=== PATIENT | male | born 1965 | race African-American/Black ===

== ENCOUNTER 2022-09-23 12:19 | Outpatient (REF) | payer OTHER, SELFPAY ==
--- NOTE | ~2022-09-23 | XR_ITS ---
EXAMINATION: XR ELBOW, LEFT CLINICAL INFORMATION: Elbow effusion COMPARISON: None available. TECHNIQUE: Three views of the left elbow. FINDINGS: No acute fracture or dislocation. No joint effusion. Mild degenerative changes in the elbow with degenerative spurring. Marked soft tissue swelling and edema dorsal to the elbow. XR/XR elbow LT 2V IMPRESSION: 1. Marked soft tissue swelling and edema dorsal to the elbow, which could reflect olecranon bursitis in the appropriate clinical setting. 2. Mild degenerative changes of the elbow.
[2022-09-23 13:19] LABS: MANUAL DIFF FLAG NO
[2022-09-23 13:21] LABS: Basophils Percent Auto 0.3 % (0-2); Eosinophils Percent Auto 0.5 % (0-4); Hematocrit 41.5 % (42.0-52.0); Hemoglobin 13.4 g/dl (14.0-18.0); Imm Gran Abs Auto 0.03 X10*3/uL (0.00-0.03); Imm Gran Pct Auto 0.5 % (0.0-0.4); Lymphocytes Absolute Auto 2.1 X10*3/uL (1.2-4.9); Mean Corpuscular HGB Conc 32.3 g/dl (31.0-36.0); Mean Corpuscular Hemoglobin 25.8 pg (27.0-33.0); Mean Platelet Volume 9.8 fL (9.4-12.4); Monocytes Absolute Auto 0.5 X10*3/uL (0.1-1.2); Monocytes Percent Auto 8.3 % (2-11); Neutrophils Absolute Auto 3.3 x10*3/uL (2.0-8.3); Neutrophils Percent Auto 55.4 % (45-73); Platelet Count 256 X10*3/uL (160-400); Red Blood Count 5.19 X10*6/uL (4.60-5.80); White Blood Count 5.9 X10*3/uL (4.8-10.8)
== END 2022-09-23 12:20 | disposition home or self-care (01) ==
LOC: HO.HMGCX 12:19
PROVIDERS: PCP Internal Medicine; Visit Provider Physician Assistant Medical
DX: M25.422 Effusion, left elbow (principal); M25.522 Pain in left elbow
CPT/HCPCS: 36415; 73070; 85025